=== PATIENT | female | born 1985 | race American Indian/Alaskan Native ===

== ENCOUNTER 2016-04-23 10:09 | Day surgery (SDC) | payer MEDICAID ==
[~2016-04-23 10:09] MED LIST: ANCEF/STERILE WATER 2 GM/20 ML IV NR
[2016-04-23] MEDS ORDERED: DIPRIVAN 10 MG/ML IV ONE ×2 (10:15→12:31)
[2016-04-23] MEDS ORDERED: DILAUDID ONE ×3 (10:15→14:55)
[2016-04-23] MEDS ORDERED: XYLOCAINE MPF 2% ONE (10:17)
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
--- NOTE | 2016-04-23 10:38 | Anesthesia Day of Surgery ---
Anesthesia Day of Surgery - Day of Surgery Patient Examined: Yes Patient H&P Reviewed: Yes Patient is NPO: Yes
[2016-04-23 10:49] LABS: Basophils % (Auto) 0.5 % (0.0-1.8); Eosinophils % (Auto) 0.8 % (0.0-4.3); Hematocrit 38.7 % (30.3-42.9); Hemoglobin 12.5 gm/dl (10.1-14.3); Mean Corpuscular HGB Conc 32 % (30-34); Mean Corpuscular Volume 79 fl (79-97); Platelet Count 217 K/mm3 (140-440); Red Cell Distribution Width 16.2 % (13.2-15.2); White Blood Count 8.5 K/mm3 (4.5-11.0)
[2016-04-23] MEDS ORDERED: PEPCID PO NR (11:00)
[2016-04-23] MEDS ORDERED: VERSED IV NR (11:00)
[2016-04-23] MEDS ORDERED: TRANSDERM-SCOP TD NR (11:00)
[2016-04-23] MEDS ORDERED: LACTATED RINGERS 1,000 ML IV SCH (11:00)
[2016-04-23 11:02] LABS: Mean Corpuscular Hemoglobin 25 pg (28-32)
[2016-04-23] MEDS ORDERED: DECADRON ONE (11:55)
[2016-04-23] MEDS ORDERED: ZOFRAN ONE (11:55)
[2016-04-23] MEDS ORDERED: NORMODYNE IV ONE (12:40)
[2016-04-23] MEDS ORDERED: NACL 0.9% IR ONE (13:44)
[2016-04-23] MEDS ORDERED: PROAIR IH ONE (14:02)
[2016-04-23] MEDS ORDERED: LACTATED RINGERS 1,000 ML ONE (14:16)
--- NOTE | 2016-04-23 14:25 | Operative Report ---
SERVICE: Plastic surgery. PREOPERATIVE DIAGNOSIS: Macromastia. POSTOPERATIVE DIAGNOSIS: Macromastia. PROCEDURE: Bilateral reduction mammoplasty with nipple areolar complex amputation. SURGEON: Bala Jeffers MD LOG COOKER: Hong Corral CSA FINDINGS: Approximately 2520 gm removed from the right breast and 1990 gm removed from the left breast. DESCRIPTION OF PROCEDURE: The patient was brought to the operating room and placed on the table in supine position. Following administration of general anesthesia, bilateral breasts were prepped with a Betadine solution and draped in the usual sterile manner. A #10 blade scalpel was used to make a circumareolar skin incision followed by de-epithelization of inferior dermal pedicle. Modified Acevedo pattern skin markings were incised with scalpel, deepened through subcutaneous fat and breast tissue using electrocautery. Skin flaps were raised in standard manner as was fashioning of an inferior central mound pedicle. Breasts tissue was resected, sent to pathology as a specimen inclusive of bilateral nipple areolar complexes due to the excessive inframammary fold to nipple distance along with the patient being a smoker and desired to be C cup size or smaller. Closure was performed over 10-mm Jeffrey drain using interrupted and running subcuticular 2-0 Monocryl sutures. Mastisol, Steri-Strips, and sterile dressings applied. The patient tolerated the procedure well and returned to recovery room in stable condition. JOB# [id number] FTW/NTS
[2016-04-23] MEDS: DILAUDID IV PRN ×2 (14:55→15:10)
[2016-04-23] MEDS ORDERED: PERCOCET 5/325 PO PRN ×2 (16:59→17:05)
--- NOTE | 2016-04-23 17:08 | Post Anesthesia Evaluation ---
- Post Anesthesia Evaluation Patient Participated: Yes Airway Patent: Yes Stable Respiratory Function: Yes Nausea/Vomiting: No Temp > 96.8F: Yes Pain Manageable: Yes Adequeate Hydration: Yes Anesthesia Complications: No
[2016-04-23 17:16] VITALS: BP 105/74
== END 2016-04-23 17:46 | disposition home or self-care (01) ==
LOC: OR 10:09
PROVIDERS: ATTEND Plastic Surgery
DX: N62 Hypertrophy of breast (principal); J45.909 Unspecified asthma, uncomplicated; D64.9 Anemia, unspecified; F41.9 Anxiety disorder, unspecified; F31.9 Bipolar disorder, unspecified; E66.9 Obesity, unspecified; Z68.43 Body mass index [BMI] 50.0-59.9, adult; Z72.89 Other problems related to lifestyle; Z83.3 Family history of diabetes mellitus; Z81.8 Family history of other mental and behavioral disorders; Z87.891 Personal history of nicotine dependence; Z90.710 Acquired absence of both cervix and uterus; Z98.890 Other specified postprocedural states
CPT/HCPCS: 19318; 36415; 85025; 88305; J0690; J1100; J1170; J2250; J2405; J2704; J7120

== ENCOUNTER 2016-08-13 08:03 | Day surgery (SDC) | payer MEDICAID ==
[~2016-08-13 08:03] MED LIST changes: +ANCEF/STERILE WATER 2 GM/20 ML 2 GM/20 ML SYRINGE IV NR; -ANCEF/STERILE WATER 2 GM/20 ML IV NR; +NACL 0.9% 1000 ML 1,000 ML IV SCH; +PEPCID PO NR; +VERSED IV NR
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
[2016-08-13] MEDS ORDERED: ZOFRAN IV PRN (09:42)
--- NOTE | 2016-08-13 09:42 | Anesthesia Day of Surgery ---
Anesthesia Day of Surgery - Day of Surgery Patient Examined: Yes Patient H&P Reviewed: Yes Patient is NPO: Yes
[2016-08-13] MEDS ORDERED: DIPRIVAN 10 MG/ML IV ONE (09:46)
[2016-08-13] MEDS ORDERED: XYLOCAINE MPF 2% ONE (09:47)
[2016-08-13] MEDS ORDERED: DECADRON ONE (10:54)
[2016-08-13] MEDS ORDERED: ZOFRAN ONE (10:54)
[2016-08-13] MEDS: DILAUDID IV PRN ×4 (12:00→12:39)
--- NOTE | 2016-08-13 12:26 | Post Anesthesia Evaluation ---
- Post Anesthesia Evaluation Patient Participated: Yes Airway Patent: Yes Stable Respiratory Function: Yes Nausea/Vomiting: No Temp > 96.8F: Yes Pain Manageable: Yes Adequeate Hydration: Yes Anesthesia Complications: No Block Receding Appropriately: Not Applicable Patient on Ventilator: No
[2016-08-13 12:41] VITALS: BP 128/80
[2016-08-13] MEDS ORDERED: NORCO 5/325 PO PRN (13:05)
--- NOTE | 2016-08-13 14:21 | Operative Report ---
PREOPERATIVE DIAGNOSES: 1. Bilateral absence of nipples. 2. Bilateral acquired breast deformity. 3. Status post bilateral breast reduction with nipple amputation. POSTOPERATIVE DIAGNOSES: 1. Bilateral absence of nipples. 2. Bilateral acquired breast deformity. 3. Status post bilateral breast reduction with nipple amputation. PROCEDURE: Bilateral nipple reconstruction. SURGEON: Bala Jeffers M.D. LEAD ELECT[employer]ICAL [employer]OLS ENGINEER: Hong Corral CSA DESCRIPTION OF PROCEDURE: The patient was brought in the operating room and placed on the table in supine position. Following administration of general anesthesia, bilateral breasts were prepped with Betadine solution and draped in usual sterile manner. A #11 blade scalpel was used to incise preoperative markings for a flag shaped flap elevated in standard manner, folded around upon itself to form a cylinder, secured in place with interrupted 3-0 Monocryl sutures. Donor site was closed with interrupted 2-0 Monocryl sutures and skin closure performed with a running subcuticular 3-0 Monocryl sutures. Mastisol, Steri-Strips, and sterile dressings applied. The patient tolerated the procedure well and returned to recovery room in stable condition. JOB# [id number] FTW/NTS
== END 2016-08-13 08:04 | disposition home or self-care (01) ==
LOC: OR 08:03
PROVIDERS: ATTEND Plastic Surgery
DX: N64.89 Other specified disorders of breast (principal); J45.909 Unspecified asthma, uncomplicated; F41.9 Anxiety disorder, unspecified; F32.9 Major depressive disorder, single episode, unspecified; E66.01 Morbid (severe) obesity due to excess calories; Z68.43 Body mass index [BMI] 50.0-59.9, adult; Z90.13 Acquired absence of bilateral breasts and nipples; Z98.890 Other specified postprocedural states; Z87.891 Personal history of nicotine dependence; Z90.710 Acquired absence of both cervix and uterus; Z83.3 Family history of diabetes mellitus; Z81.8 Family history of other mental and behavioral disorders
CPT/HCPCS: 19350; J0690; J1100; J1170; J2250; J2405; J2704; J7030